=== PATIENT | female | born 1990 | race Caucasian/White ===

== ENCOUNTER 2018-03-06 08:24 | Emergency (ER) | payer SELFPAY ==
[~2018-03-06] VITALS: Ht 175.3 cm; Wt 108.9 kg
[2018-03-06 08:35] VITALS: BP 129/78
[2018-03-06] MEDS ORDERED: NAPR-514 PO (09:36)
--- NOTE | 2018-03-06 09:36 | PHYS DOC ---
Past Medical History Past Medical History: No Pertinent History Past Surgical History: Other Additional Past Surgical Histo: right elbow Alcohol Use: Occasionally Drug Use: None Adult General Chief Complaint Chief Complaint: SHOUDLER HPI HPI Patient is a 27 year old female who presents to the ER with complaints of L shoulder pain for the last week that is now shooting pain into the 4th and 5th digits of her left hand as of today. Pt denies any known injury, recent heavy lifting, or repetitive movements of her left shoulder. She currently rates the pain as a 6 out of 10 on the pain scale and states that the pain increases to an eight with movement. She has not taken anything for relief of her pain. She describes the pain as sharp aching. Review of Systems Review of Systems Constitutional: Denies fever or chills [] Eyes: Denies change in visual acuity, redness, or eye pain [] Respiratory: Denies cough or shortness of breath [] Cardiovascular: Denies chest pain Musculoskeletal: Denies back pain, reports left shoulder pain Integument: Denies rash or skin lesions [] Neurologic: Denies headache, focal weakness or sensory changes [] All other systems were reviewed and found to be within normal limits, except as documented in this note. Allergies Allergies Allergies Coded Allergies Type Severity Reaction Last Updated Verified latex Allergy Intermediate 03/06/18 Yes Physical Exam Physical Exam Constitutional: Well developed, well nourished, no acute distress, non-toxic appearance. [] HENT: Normocephalic, atraumatic, bilateral external ears normal, nose normal. [] Eyes: normal Skin: Warm, dry, no erythema, no rash. 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 [] Psychologic: Affect normal, judgement normal, mood normal. [] Current Patient Data Vital Signs Vital Signs Date Time Temp Pulse Resp B/P (MAP) Pulse Ox O2 Delivery O2 Flow Rate FiO2 03/06/18 08:35 98.5 75 18 129/78 (95) 100 Room Air 98.5 EKG EKG [] Radiology/Procedures Radiology/Procedures [] Course & Med Decision Making Course & Med Decision Making Pertinent Labs and Imaging studies reviewed. (See chart for details) Ulnar nerve entrapment, activity as tolerated, Rx for naproxen BID, follow up with PCP or Dr. Álvarez. Patient verbalized an understanding of home care, medications, follow-up, and return to ED instructions and was in agreement with the plan of care. [] Dragon Disclaimer Dragon Disclaimer This electronic medical record was generated, in whole or in part, using a voice recognition dictation system. Departure Departure Impression: Primary Impression: Ulnar nerve entrapment Disposition: HOME, SELF-CARE Condition: STABLE Referrals: NO PCP (PCP) LEONARD ÁLVAREZ MD Patient Instructions: Pinched Nerve Additional Instructions: Fill prescription and use as directed. Activity as tolerated. Follow up with your Primary care doctor or Dr. Álvarez if symptoms persist. Return to the ER if symptoms worsen. Scripts Naproxen (NAPROXEN) 500 Mg Tablet 1 TAB PO BID for 14 Days, #28 TAB 0 Refills Prov: YIFAN LR APRN 03/06/18 Problem Qualifiers Primary Impression: Ulnar nerve entrapment Laterality: left Qualified Codes: G56.22 - Lesion of ulnar nerve, left upper limb YIFAN LR [employer] Mar 06, 2018 09:36
== END 2018-03-06 09:50 | disposition home or self-care (01) ==
LOC: ER 08:24
DX: G56.22 Lesion of ulnar nerve, left upper limb (principal); M25.512 Pain in left shoulder; Z91.040 Latex allergy status
CPT/HCPCS: 99282

== ENCOUNTER 2018-06-29 04:32 | Emergency (ER) | payer OTHER ==
[~2018-06-29] VITALS: Ht 175.3 cm; Wt 108.9 kg
[~2018-06-29 04:32] MED LIST: NAPR-514 PO
[2018-06-29 04:34] VITALS: BP 131/83
--- NOTE | 2018-06-29 04:46 | PHYS DOC ---
Past Medical History Past Medical History: No Pertinent History Past Surgical History: Cholecystectomy, Other Additional Past Surgical Histo: right elbow Smoking: Cigarettes Alcohol Use: Occasionally Drug Use: None Adult General Chief Complaint Chief Complaint: SORE THROAT HPI HPI Patient is a 27 year old female who presents with sore throat. This started approximately 24 hours ago. Patient's partner has been diagnosed with strep pharyngitis within the past 48 hours. Patient reports feeling achy all over. No nausea or vomiting. No nasal congestion. Increased pain with swallowing. Subjective fevers. Nothing seems to make the discomfort better or worse other than swallowing.[] Review of Systems Review of Systems Constitutional: Denies chills [] Eyes: Denies change in visual acuity, redness, or eye pain [] HENT: Denies nasal congestion [] Respiratory: Denies cough or shortness of breath [] Cardiovascular: No chest pain or palpitations[] GI: Denies abdominal pain, nausea, vomiting, bloody stools or diarrhea [] : Denies dysuria or hematuria [] Musculoskeletal: Denies back pain or joint pain [] Integument: Denies rash or skin lesions [] Neurologic: Denies headache, focal weakness or sensory changes [] Endocrine: Denies polyuria or polydipsia [] All other systems were reviewed and found to be within normal limits, except as documented in this note. Current Medications Current Medications Current Medications Medications (Trade) Dose Ordered Sig/Kelvin Start Time Stop Time Status Last Admin Dose Admin Dexamethasone Sodium Phosphate (Decadron) 10 mg 1X ONCE 06/29/18 04:45 06/29/18 04:46 UNV Penicillin G Benzathine (Bicillin L-A) 1,200,000 unit 1X ONCE 06/29/18 04:45 06/29/18 04:46 UNV Allergies Allergies Allergies Coded Allergies Type Severity Reaction Last Updated Verified latex Allergy Intermediate 03/06/18 Yes Physical Exam Physical Exam Constitutional: Well developed, well nourished, no acute distress, non-toxic appearance. [] HENT: Normocephalic, atraumatic, bilateral external ears normal, oropharynx moist, enlarged tonsils, bilaterally symmetric. Uvula is midline. nose normal. [ ] Eyes: PERRLA, EOMI, conjunctiva normal, no discharge. [] Neck: Normal range of motion, no tenderness, supple, no stridor. Anterior chain lymphadenopathy is present [] Cardiovascular:Heart rate regular rhythm, no murmur [] Lungs & Thorax: Bilateral breath sounds clear to auscultation [] Abdomen: Bowel sounds normal, soft, no tenderness, no masses, no pulsatile masses. No hepato-or splenomegaly is present[] Skin: Warm, dry, no erythema, no rash. [] Back: No tenderness, no CVA tenderness. [] Extremities: No tenderness, no cyanosis, no clubbing, ROM intact, no edema. [] Neurologic: Alert and oriented X 3, normal motor function, normal sensory function, no focal deficits noted. [] Psychologic: Affect normal, judgement normal, mood normal. [] EKG EKG [] Radiology/Procedures Radiology/Procedures [] Course & Med Decision Making Course & Med Decision Making Pertinent Labs and Imaging studies reviewed. (See chart for details) Medical decision making: Patient with a sore throat and has been exposed to strep pharyngitis from her partner, will treat her for strep. No evidence of peritonsillar abscess, retropharyngeal abscess, meningitis, nor by mouth intolerance.[] Dragon Disclaimer Dragon Disclaimer This electronic medical record was generated, in whole or in part, using a voice recognition dictation system. Departure Departure Impression: Primary Impression: Pharyngitis Disposition: 01 HOME, SELF-CARE Condition: GOOD Referrals: NO PCP (PCP) Patient Instructions: Viral and Bacterial Pharyngitis Additional Instructions: Drink plenty of fluids. Follow-up with your regular doctor in 2 days. If you do not have regular doctor, list of local low-cost clinics will be provided for you. Return to the ER if worsening discomfort or, inability to swallow, or any other concerns. Problem Qualifiers Primary Impression: Pharyngitis Pharyngitis/tonsillitis etiology: unspecified etiology Qualified Codes: J02.9 - Acute pharyngitis, unspecified GHULAM STILL DO Jun 29, 2018 04:46
[2018-06-29] MEDS ORDERED: PENICILLIN G BENZATHINE LA 1,200,000 UNIT/2 ML DISP.SYRIN. IM ONE (05:00)
[2018-06-29] MEDS ORDERED: DEXAMETHASONE SOD PHOS 20 MG/5 ML VIAL. IM ONE (05:00)
== END 2018-06-29 05:10 | disposition home or self-care (01) ==
LOC: ER 04:32
DX: J02.9 Acute pharyngitis, unspecified (principal); R50.9 Fever, unspecified; R13.10 Dysphagia, unspecified; M79.10 Myalgia, unspecified site; F17.210 Nicotine dependence, cigarettes, uncomplicated; Z91.040 Latex allergy status
CPT/HCPCS: 96372; 99283; J0561; J1100

== ENCOUNTER 2018-10-24 20:01 | Emergency (ER) | payer OTHER, SELFPAY ==
[~2018-10-24] VITALS: Ht 175.3 cm; Wt 114.3 kg
[2018-10-24 20:42] VITALS: BP 141/67
[2018-10-24] MEDS ORDERED: ONDANSETRON ODT 4 MG TAB.RAPDIS. PO ONE (21:30)
[2018-10-24] MEDS ORDERED: MORPHINE SULFATE 10 MG/ML VIAL. IM ONE (21:30)
--- NOTE | 2018-10-24 22:31 | RAD ---
CT PELVIS WO CONTRAST Indication: PT FELL WHILE SKATING; PAIN TO PELVIS AND TAILBONE Exposure: One or more of the following individualized dose reduction techniques were utilized for this examination: 1. Automated exposure control 2. Adjustment of the mA and/or kV according to patient size 3. Use of iterative reconstruction technique. Technique: Standard imaging without intravenous contrast. Subchondral lesion at the anterosuperior left femoral head with a crescentic lucency and mild subjacent sclerosis. There is sclerosis of the femoral head and neck distal to this, involving the lateral aspect. Mild degenerative spurring at the right hip. Minimal subcortical cystic change at the anterior left femoral head and neck. There is mild cortical buckling of the sacrum with a cortical fracture at about the S6 level. This is just above the sacrococcygeal junction. No significant displacement. Sacroiliac joints are intact. Mild subchondral sclerosis at the iliac aspects of the joints, left greater than right. Mild degenerative spurring of both hips. No significant soft tissue abnormality. Visualized bowel loops are not distended. There is mild colonic diverticulosis. IMPRESSION: 1. Nondisplaced acute appearing fracture of the distal sacrum. 2. Subchondral lesion with fracture at the right femoral head. Likely etiologies are femoral head osteonecrosis or stress fracture. Outpatient MRI could further evaluate as indicated. Electronically signed by: Gunnar Castelan MD (10/24/2018 10:28 PM) [facility]
--- NOTE | 2018-10-24 22:36 | RAD ---
CT THORACIC SPINE WO CONTRAST Indication: PT FELL WHILE SKATING; PAIN TO UPPER BACK Exposure: One or more of the following individualized dose reduction techniques were utilized for this examination: 1. Automated exposure control 2. Adjustment of the mA and/or kV according to patient size 3. Use of iterative reconstruction technique. Technique: Standard imaging without intravenous contrast. Vertebral body height is intact. There is endplate irregularity at the lower thoracic levels, likely developmental as can be seen with Scheuermann's disease. There is also marginal spurring suggesting a degenerative component of disc disease. There is no evidence of an acute appearing fracture. No significant subluxation. No evidence of high-grade central osseous spinal stenosis. No evidence of paraspinal soft tissue swelling. Visualized lungs are clear. IMPRESSION: 1. No evidence of acute fracture or subluxation. 2. There is endplate irregularity and sclerosis with marginal spurring at multiple levels. Findings are likely degenerative and/or developmental in nature. Electronically signed by: Gunnar Castelan MD (10/24/2018 10:33 PM) [facility]
--- NOTE | 2018-10-24 22:43 | RAD ---
CT LUMBAR SPINE WO CONTRAST Indication: PT FELL WHILE SKATING; PAIN TO LOWER BACK Exposure: One or more of the following individualized dose reduction techniques were utilized for this examination: 1. Automated exposure control 2. Adjustment of the mA and/or kV according to patient size 3. Use of iterative reconstruction technique. Technique: Standard imaging without intravenous contrast. Vertebral body height is maintained. Mild endplate irregularity, similar to what was seen in the thoracic spine but less pronounced. Mild marginal spurring. Vertebral body height is maintained. No significant subluxation. Sacroiliac joints are intact. Small aortocaval lymph node identified with short axis measurement of 7 mm, likely reactive. Fracture of the distal sacrum again identified, described in the CT pelvis report. IMPRESSION: 1. Nondisplaced acute fracture of the distal sacrum again identified. 2. Mild degenerative changes of the lumbar spine. Electronically signed by: Gunnar Castelan MD (10/24/2018 10:40 PM) [facility]
[2018-10-24] MEDS ORDERED: HYDR-3164 PO (23:25)
[2018-10-24] MEDS ORDERED: ONDA4TAB12 PO (23:25)
--- NOTE | 2018-10-24 23:27 | PHYS DOC ---
Past Medical History Past Medical History: No Pertinent History (GUNNAR SEGAL APRN) Past Surgical History: Cholecystectomy, Other Additional Past Surgical Histo: right elbow (GUNNAR SEGAL APRN) Smoking: Cigarettes, 1 Pack Per Day Alcohol Use: None Drug Use: None (GUNNAR SEGAL APRN) Adult General Chief Complaint Chief Complaint: MECHANICAL FALL HPI HPI Patient is a 27-year-old female who fell at 6:30 while she was skating. She states she fell on her tailbone. She also has right hip pain. Pain is severity of 9 out of 10 she describes as jolting pain. She states she has not been able to urinate since the fall. Patient states that she has had ongoing right hip pain with a stress fracture in the hip. (GUNNAR SEGAL APRN) Review of Systems Review of Systems Constitutional: Denies fever or chills [] Eyes: Denies change in visual acuity, redness, or eye pain [] HENT: Denies nasal congestion or sore throat [] Respiratory: Denies cough or shortness of breath [] Cardiovascular: No additional information not addressed in HPI [] GI: Denies abdominal pain, nausea, vomiting, bloody stools or diarrhea [] : Denies dysuria or hematuria. Reports pressure like she needs to urinate but is unable to go to the restroom. Musculoskeletal: Report severe back pain and hip pain. Integument: Denies rash or skin lesions [] Neurologic: Denies headache, focal weakness or sensory changes [] Endocrine: Denies polyuria or polydipsia [] Complete systems were reviewed and found to be within normal limits, except as documented in this note. (GUNNAR SEGAL APRN) Current Medications Current Medications Current Medications Medications (Trade) Dose Ordered Sig/Kelvin Start Time Stop Time Status Last Admin Dose Admin Morphine Sulfate (Morphine Sulfate) 10 mg 1X ONCE 10/24/18 21:30 10/24/18 21:31 DC 10/24/18 21:49 10 MG Ondansetron HCl (Zofran Odt) 4 mg 1X ONCE 10/24/18 21:30 10/24/18 21:31 DC 10/24/18 21:49 4 MG (MELOANGELI E DO) Allergies Allergies Allergies Coded Allergies Type Severity Reaction Last Updated Verified latex Allergy Intermediate 9/12/18 Yes (ANGELI ALEJO DO) Physical Exam Physical Exam Constitutional: Appears in distress, is leaning over the chair in room and moaning. HENT: Normocephalic, atraumatic, oropharynx moist, no oral exudates, nose normal. [] Eyes: PERRLA, EOMI, conjunctiva normal, no discharge. [] Neck: Normal range of motion, no tenderness, supple, no stridor. [] Cardiovascular:Heart rate regular rhythm, no murmur [] Lungs & Thorax: Bilateral breath sounds clear to auscultation [] Abdomen: Bowel sounds normal, soft, no tenderness, no masses, no pulsatile masses. [] Skin: Warm, dry, no erythema, no rash. [] Back: Sacral Tenderness, Tenderness to the R Hip, Lumbar and Thoracic tenderness to palpation with no step offs. Extremities: No tenderness, no cyanosis, no clubbing, ROM intact, no edema. [] Neurologic: Alert and oriented X 3, normal motor function, normal sensory function, no focal deficits noted. [] Psychologic: Affect normal, judgement normal, mood normal. [] (GUNNAR SEGAL APRN) Current Patient Data Vital Signs Vital Signs Date Time Temp Pulse Resp B/P (MAP) Pulse Ox O2 Delivery O2 Flow Rate FiO2 10/24/18 21:49 20 10/24/18 20:42 97.9 141/67 (91) 97 Room Air 97.9 (MELOANGELI ) Lab Values Laboratory Tests Test 10/24/18 20:14 POC Urine HCG, Qualitative Hcg negative (Negative) (MELOANGELINOLA Miller DO) EKG EKG [] (GUNNAR SEGAL APRN) Radiology/Procedures Radiology/Procedures []PATIENT: ORLANDO TALAVERA EACCOUNT: [id number]#: [id number] : 1990 LOCATION: ER AGE: 27 SEX: F EXAM STATUS: REG ER ORD. PHYSICIAN: GUNNAR SEGAL APRN REASON: fall PROCEDURE: CT PELVIS WO CONTRAST CT PELVIS WO CONTRAST Indication: PT FELL WHILE SKATING; PAIN TO PELVIS AND TAILBONE Exposure: One or more of the following individualized dose reduction techniques were utilized for this examination: 1. Automated exposure control 2. Adjustment of the mA and/or kV according to patient size 3. Use of iterative reconstruction technique. Technique: Standard imaging without intravenous contrast. Subchondral lesion at the anterosuperior left femoral head with a crescentic lucency and mild subjacent sclerosis. There is sclerosis of the femoral head and neck distal to this, involving the lateral aspect. Mild degenerative spurring at the right hip. Minimal subcortical cystic change at the anterior left femoral head and neck. There is mild cortical buckling of the sacrum with a cortical fracture at about the S6 level. This is just above the sacrococcygeal junction. No significant displacement. Sacroiliac joints are intact. Mild subchondral sclerosis at the iliac aspects of the joints, left greater than right. Mild degenerative spurring of both hips. No significant soft tissue abnormality. Visualized bowel loops are not distended. There is mild colonic diverticulosis. IMPRESSION: 1. Nondisplaced acute appearing fracture of the distal sacrum. 2. Subchondral lesion with fracture at the right femoral head. Likely etiologies are femoral head osteonecrosis or stress fracture. Outpatient MRI could further evaluate as indicated. Electronically signed by: Gunnar Castelan MD (10/24/2018 10:28 PM) [facility] DICTATED and SIGNED BY: GUNNAR CASTELAN MD DATE: 10/24/182227 PATIENT: ORLANDO TALAVERA ACCOUNT: [id number] : 1990 LOCATION: ER AGE: 27 SEX: F EXAM STATUS: REG ER ORD. PHYSICIAN: GUNNAR SEGAL APRN REASON: fall PROCEDURE: CT LUMBAR SPINE WO CONTRAST CT LUMBAR SPINE WO CONTRAST Indication: PT FELL WHILE SKATING; PAIN TO LOWER BACK Exposure: One or more of the following individualized dose reduction techniques were utilized for this examination: 1. Automated exposure control 2. Adjustment of the mA and/or kV according to patient size 3. Use of iterative reconstruction technique. Technique: Standard imaging without intravenous contrast. Vertebral body height is maintained. Mild endplate irregularity, similar to what was seen in the thoracic spine but less pronounced. Mild marginal spurring. Vertebral body height is maintained. No significant subluxation. Sacroiliac joints are intact. Small aortocaval lymph node identified with short axis measurement of 7 mm, likely reactive. Fracture of the distal sacrum again identified, described in the CT pelvis report. IMPRESSION: 1. Nondisplaced acute fracture of the distal sacrum again identified. 2. Mild degenerative changes of the lumbar spine. Electronically signed by: Gunnar Castelan MD (10/24/2018 10:40 PM) [facility] PATIENT: ORLANDO TALAVERA ACCOUNT: [id number] : 1990 LOCATION: ER AGE: 27 SEX: F EXAM STATUS: REG ER ORD. PHYSICIAN: GUNNAR SEGAL APRN REASON: fall PROCEDURE: CT THORACIC SPINE WO CONTRAST CT THORACIC SPINE WO CONTRAST Indication: PT FELL WHILE SKATING; PAIN TO UPPER BACK Exposure: One or more of the following individualized dose reduction techniques were utilized for this examination: 1. Automated exposure control 2. Adjustment of the mA and/or kV according to patient size 3. Use of iterative reconstruction technique. Technique: Standard imaging without intravenous contrast. Vertebral body height is intact. There is endplate irregularity at the lower thoracic levels, likely developmental as can be seen with Scheuermann's disease. There is also marginal spurring suggesting a degenerative component of disc disease. There is no evidence of an acute appearing fracture. No significant subluxation. No evidence of high-grade central osseous spinal stenosis. No evidence of paraspinal soft tissue swelling. Visualized lungs are clear. IMPRESSION: 1. No evidence of acute fracture or subluxation. 2. There is endplate irregularity and sclerosis with marginal spurring at multiple levels. Findings are likely degenerative and/or developmental in nature. Electronically signed by: Gunnar Castelan MD (10/24/2018 10:33 PM) [facility] (GUNNAR SEGAL APRN) Course & Med Decision Making Course & Med Decision Making Pertinent Labs and Imaging studies reviewed. (See chart for details) []Discussed signs and symptoms. Discussed getting CT scans of pelvis, lumbar, and thoracic spine due to amount of pain after injury that is ongoing. Will also give morphine IM and Zofran. Patient is agreeable to plan of care. CT scans showed S6 fracture and an femoral head fracture that is questionable per patient history on whether or not that is from this accident. Patient has a stress fracture that she is already being seen by Ortho for. Offered admission for pain control and to have Ortho see her in the morning. Patient declined admission. Will call orthopedics in the morning. (GUNNAR SEGAL APRN) Dragon Disclaimer Dragon Disclaimer This electronic medical record was generated, in whole or in part, using a voice recognition dictation system. (GUNNAR SEGAL APRN) Dragon Disclaimer The mid-level provider has independently evaluated and treated this patient. I was available for consultation throughout the patient care by the mid-level provider. I agree with the care provided by the mid-level provider (ANGELI ALEJO DO) Departure Departure Impression: Primary Impression: Sacral fracture, closed Additional Impression: Fracture of femoral head Disposition: HOME, SELF-CARE Condition: STABLE Referrals: GUILLE DRAPER MD (PCP) LEONARD DONOHUE MD Additional Instructions: Please follow up with Ortho in the morning. Take medication as directed for pain control. Scripts Hydrocodone/Apap 5-325 (NORCO 5-325 TABLET) 1 Each Tablet 1-2 TAB PO Q4-6HRS for 7 Days, #10 TAB Prov: GUNNAR SEGAL APRN 10/24/18 Ondansetron (ONDANSETRON ODT) 4 Mg Tab.rapdis 1 TAB PO PRN Q6-8HRS PRN for NAUSEA, #16 TAB Prov: GUNNAR SEGAL APRN 10/24/18 Problem Qualifiers Primary Impression: Sacral fracture, closed Encounter type: initial encounter Fracture morphology: unspecified fracture morphology Qualified Codes: S32.10XA - Unspecified fracture of sacrum, initial encounter for closed fracture Additional Impression: Fracture of femoral head Encounter type: initial encounter Fracture type: closed Laterality: right Qualified Codes: S72.051A - Unspecified fracture of head of right femur, initial encounter for closed fracture GUNNAR SEGAL APRN October 24, 2018 23:27 ANGELI ALEJO DO October 25, 2018 06:08
== END 2018-10-25 00:04 | disposition home or self-care (01) ==
LOC: ER 20:01
DX: S32.19XA Other fracture of sacrum, initial encounter for closed fracture (principal); S72.091A Other fracture of head and neck of right femur, initial encounter for closed fracture; M54.6 Pain in thoracic spine; F17.210 Nicotine dependence, cigarettes, uncomplicated; Z90.49 Acquired absence of other specified parts of digestive tract; Z91.040 Latex allergy status; W18.39XA Other fall on same level, initial encounter; Y93.21 Activity, ice skating; Y92.89 Other specified places as the place of occurrence of the external cause; Y99.8 Other external cause status
CPT/HCPCS: 72128; 72131; 72192; 81025; 96372; 99284; J2270; Q0162

== ENCOUNTER → 2019-01-10 | Outpatient (CLI) | payer OTHER ==
[~2019-01-10] MED LIST changes: +HYDR-3164 PO; +ONDA4TAB12 PO
--- NOTE | 2019-01-10 13:42 | KCIC ---
LUMBAR SPINE WO CONTRAST History: Right hip pain. Leg pain. Technique: Multiplanar, multi sequential MR imaging was performed of the lumbar spine. Comparison: CT lumbar spine October 24, 2018. Findings: Normal vertebral body height and alignment. No fracture. Degenerative endplate edema at L5-S1. Conus terminates at the normal location. No evidence of nerve root clumping. T12-L1: Small posterior disc protrusion. No canal or neuroforaminal narrowing. L1-L2: No canal or neuroforaminal narrowing. L2-L3: No canal or neuroforaminal narrowing. L3-L4: No canal or neuroforaminal narrowing. Mild facet arthropathy with facet joint effusions. L4-L5: Disc height loss. Broad-based posterior disc bulge with central annular fissure. Mild facet arthropathy. No canal narrowing. No neuroforaminal narrowing. L5-S1: Disc height loss. Small central disc protrusion. Mild facet arthropathy. No canal narrowing. No neural foraminal narrowing. Impression: 1. Mild lower lumbar spondylosis most prominent L4-L5 and L5-S1. No significant canal or neuroforaminal narrowing. 2. Degenerative endplate edema at L5-S1. Electronically signed by: Robert Bishop DO (01/10/2019 1:39 PM) [facility]
== END | disposition home or self-care (01) ==
LOC: KCIC MRI 12:31
PROVIDERS: ATTEND Orthopaedic Surgery
DX: M47.817 Spondylosis without myelopathy or radiculopathy, lumbosacral region (principal); M51.25 Other intervertebral disc displacement, thoracolumbar region; M51.27 Other intervertebral disc displacement, lumbosacral region; M12.88 Other specific arthropathies, not elsewhere classified, other specified site; G95.19 Other vascular myelopathies
CPT/HCPCS: 72148

== ENCOUNTER 2019-02-14 11:32 | Day surgery (SDC) | payer OTHER ==
[~2019-02-14 11:32] MED LIST changes: +HYDROmorphone 2 MG/ML VIAL IV PRN; +IV RINGERS,LACTATED 1000ML 1,000 ML IV SCH; +MORPHINE SULFATE 2 MG/ML VIAL. IV PRN; +ONDANSETRON PF 4 MG/2 ML VIAL. IV PRN; +PROCHLORPERAZINE 10 MG/2 ML VIAL. IV PRN; +fentaNYL PF VIAL 100 MCG/2 ML VIAL IV PRN
[2019-02-14] MEDS ORDERED: MIDAZOLAM HCL/PF 2 MG/2 ML VIAL. ONE (12:43)
[2019-02-14] MEDS ORDERED: fentaNYL PF VIAL 100 MCG/2 ML VIAL ONE ×3 (12:43→14:28)
[2019-02-14] MEDS ORDERED: SEVOFLURANE 16 TO 30 MINUTES. IH ONE (12:43)
[2019-02-14] MEDS ORDERED: DEXAMETHASONE SOD PHOS 4 MG/ML VIAL ONE (12:44)
[2019-02-14] MEDS ORDERED: PROPOFOL 20 ML IV ONE (12:44)
[2019-02-14] MEDS ORDERED: LIDOCAINE 2% PF 5 ML VIAL. ONE (12:44)
[2019-02-14] MEDS ORDERED: KETOROLAC 30 MG/ML INJ FOR OR. INJ ONE (12:45)
[2019-02-14] MEDS ORDERED: ONDANSETRON PF 4 MG/2 ML VIAL. ONE (12:45)
[2019-02-14] MEDS: fentaNYL PF VIAL 100 MCG/2 ML VIAL IV PRN ×2 (14:39→15:17)
--- NOTE | 2019-02-14 14:58 | PDOC ---
BRIEF OPERATIVE NOTE Date: Feb 14, 2019 Pre-Op Diagnosis AUB Post-Op Diagnosis Same Procedure Performed Dx hysteroscopy with BIRGIT Surgeon Nasim Anesthesia Type: General Blood Loss 20cc Specimens Obtained None Complications None CARLOS GONZALEZ MD Feb 14, 2019 14:58
[2019-02-14] MEDS ORDERED: NAPR-514 PO (15:04)
[2019-02-14] MEDS ORDERED: HYDR-3164 PO (15:04)
--- NOTE | 2019-02-14 15:21 | OP ---
DATE OF SURGERY: 02/14/2019 PREOPERATIVE DIAGNOSIS: Abnormal uterine bleeding. POSTOPERATIVE DIAGNOSES: Abnormal uterine bleeding. PROCEDURE: Diagnostic hysteroscopy with endometrial ablation with NovaSure. SURGEON: Aly Rouse MD FIELD TRAINER: None. ANESTHESIA: General. ESTIMATED BLOOD LOSS: 20 mL. FLUIDS: Crystalloid. SPECIMENS: None. COMPLICATIONS: None. DESCRIPTION OF PROCEDURE: After risks, benefits, indications, alternatives, and expectations discussed in detail with the patient, the patient was brought to OR theater, placed in dorsal lithotomy position in Alex stirrups. After adequate general anesthesia, the patient prepped and draped in usual sterile manner. Posterior weighted speculum was placed in the vaginal vault. Cervix was grasped with single tooth tenaculum. The uterus was sounded with uterine sound at approximately 9 cm. Cervix was dilated up to receive the hysteroscope and the NovaSure measuring device was placed without any difficulty. The uterine cavity length was 6 cm. Cervical length was 3 cm. Hysteroscope was placed. There was considerable tissue and blood in the uterine cavity, which obscured the field. The hysteroscope was then placed after placing a uterine cavity length at 6 cm. The NovaSure device was opened. The cavity width was 3 cm. Cavity assessment was performed. The procedure was begun and lasted approximately 69 seconds with good fulguration occurred. The device was removed. Cavity was once again inspected with hysteroscope with good fulguration was noted in all areas of the cavity and procedure was terminated. Single tooth tenaculum was removed. Puncture sites were hemostatic. Vaginal vault was wiped free of any blood or debris. Posterior weighted speculum also removed. The procedure was terminated. Sponge, needle and instrument counts were correct x 2 per nursing staff. ALY ROUSE MD DR: MARTINE/roslyn JOB#: [id number] / [id number]
[2019-02-14] MEDS ORDERED: HYDROcodone/APAP 5/325MG 1 TAB TABLET PO ONE (15:30)
[2019-02-14 16:00] VITALS: BP 124/83
== END 2019-02-14 16:12 | disposition home or self-care (01) ==
LOC: SURG 11:32
PROVIDERS: ATTEND Specialist
DX: N93.9 Abnormal uterine and vaginal bleeding, unspecified (principal); Z90.49 Acquired absence of other specified parts of digestive tract; Z91.040 Latex allergy status; Z98.890 Other specified postprocedural states; Z98.51 Tubal ligation status
CPT/HCPCS: 58563; 81025; A7015; J1100; J1885; J2001; J2250; J2405; J2704; J3010; J7030

== ENCOUNTER → 2019-03-14 | Outpatient (CLI) | payer OTHER ==
[2019-02-14 16:00] VITALS: BP 124/83
[~2019-03-14] MED LIST changes: -HYDROmorphone 2 MG/ML VIAL IV PRN; -IV RINGERS,LACTATED 1000ML 1,000 ML IV SCH; -MORPHINE SULFATE 2 MG/ML VIAL. IV PRN; -ONDANSETRON PF 4 MG/2 ML VIAL. IV PRN; -PROCHLORPERAZINE 10 MG/2 ML VIAL. IV PRN; +[UNRECOGNIZED DRUG - REMARK]; -fentaNYL PF VIAL 100 MCG/2 ML VIAL IV PRN
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
== END | disposition home or self-care (01) ==
LOC: PNCL 09:42
PROVIDERS: ATTEND Anesthesiology
DX: M25.551 Pain in right hip (principal); M25.511 Pain in right shoulder; M87.88 Other osteonecrosis, other site; F17.210 Nicotine dependence, cigarettes, uncomplicated; F32.9 Major depressive disorder, single episode, unspecified; M19.90 Unspecified osteoarthritis, unspecified site; W10.8XXA Fall (on) (from) other stairs and steps, initial encounter; Y93.89 Activity, other specified; Y92.89 Other specified places as the place of occurrence of the external cause; Y99.8 Other external cause status
CPT/HCPCS: G0463

== ENCOUNTER → 2019-03-31 | Outpatient (CLI) | payer OTHER ==
[~2019-03-31] MED LIST changes: +BUPIVACAINE MPF 0.25% 10 ML VIAL. ONE; +IOHEXOL 180 MG/ML 10 ML VIAL. ONE; +methylPREDNISolone ACETATE 80 MG/ML VIAL. ONE
--- NOTE | 2019-03-31 11:32 | PAIN ---
DATE OF SERVICE: 03/31/2019 PROGRESS NOTE FOR PAIN CLINIC DIAGNOSES: Right hip joint pain with avascular necrosis of right hip joint. HISTORY OF PRESENT ILLNESS: The patient is a 28-year-old female who returns for followup status post preauthorization for a right intraarticular hip joint injection. The patient has obtained that and would like to proceed today, still significant pain in the right hip with walking, standing, and weightbearing, especially putting all of her weight on her right leg such as climbing a stair, stepping off a curb, and reports as a 9 on a scale of 10 at its worse over the past week, 7 on its average, and 5 at its least and is a 5 today. The patient reports no new motor or sensory deficits, no new bowel or bladder incontinence or other complaints. There is still significant pain described as stabbing, aching, sharp, and constant in the right hip itself. PHYSICAL EXAMINATION: VITAL SIGNS: The patient's blood pressure is 121/83, pulse 83, respirations 16, temperature 98.1 degrees Fahrenheit, height is 5 feet 9 inches, weight is 244 pounds. GENERAL: The patient is awake, alert, oriented, appropriate, very pleasant demeanor. HEENT: Shows normocephalic, atraumatic. Extraocular movements are intact and symmetrical. Oral cavity: Mucous membranes moist and pink. NECK: Shows anterior throat supple without palpable lymphadenopathy noted. Swallow reflex symmetrical. CHEST: Shows normal on inspection. Breath sounds clear bilaterally. HEART: Shows S1, S2 clear. ABDOMEN: Soft, obese, nontender, nondistended. BACK: Shows spine grossly in the midline. Lumbar paraspinous muscle shows symmetrical on inspection, on palpation shows some very mild tenderness in the low lumbar distribution, but only diffusely. EXTREMITIES: The patient's lower extremities show deep tendon reflexes 2+ in the patellar, 1+ tendo-calcaneus tendons. Motor exam is approximately 4 on a scale of 5 with right dorsiflexion, extension, quadriceps and hamstring flexion and 5/5 on the left. The patient still has a positive Samuel's maneuver with external rotation of the right hip and with the knee flexed to the right side only; left side is negative. Options were discussed with the patient. The patient's old chart was reviewed as her current medication regimen updated. Current review of systems updated today as well. We will proceed with a right-sided intraarticular hip joint injection with fluoroscopic guidance. Risks were again discussed including, but not limited to bleeding, infection, possibility of intravascular injection sequelae, spread of local anesthetic and numbness, side effects of steroid medication, exposure to fluoroscopy, and poor results regarding pain control. The patient understands and wished to proceed. The patient will return to clinic in approximately 2 weeks for followup. She was counseled on return appointment, activity level, and side effects to be aware of. DIAGNOSES: Right hip joint pain with avascular necrosis of right hip joint. PROCEDURE: Right intra-articular hip joint injections using C-arm fluoroscopic guidance under sterile prep and drape using local anesthetic. MEDICATION INJECTED: A total of 3 mL of 0.25% bupivacaine, 80 mg Depo-Medrol and 2 mL of contrast. CONDITION AT DISCHARGE: Stable. The patient tolerated procedure well, had no complications. SHA MARCUS MD DR: DIO/roslyn JOB#: [id number] / [id number]
== END ==
LOC: PNCL 09:49
PROVIDERS: ATTEND Anesthesiology
DX: M16.11 Unilateral primary osteoarthritis, right hip (principal)
CPT/HCPCS: 20610; 77002; J1040; J3490; Q9965

== ENCOUNTER → 2019-05-16 | Outpatient (CLI) | payer OTHER ==
--- NOTE | 2019-05-17 03:55 | PAIN ---
DATE OF SERVICE: 05/16/2019 PROGRESS NOTE FOR PAIN CLINIC DIAGNOSIS: Right hip joint pain with avascular necrosis, right hip joint. HISTORY OF PRESENT ILLNESS: The patient is a 28-year-old female who returns for followup status post right hip joint injection on 03/31/2019. The patient reports about 70% improvement for the first 3 weeks or so. The patient reports the pain is beginning to return now, worse since she started working again, she is on her feet much more. Walking, standing, changing positions, all exacerbate the pain, better with sitting or lying down. Generally, it does not awaken her from sleep, but over the past week, it has been every 5-6 hours. The patient reports the pain in the right hip, right groin radiating, worse with standing, putting all of her weight on her right leg. She described it as cramping, aching, sharp, shooting, severe at times, on and off in intensity and again better with sitting or lying down. The patient reports it is an 8 on a scale of 10 at its worst over the past week, 6 on average, 4 at its least and is a 6 today. The patient reports no new motor or sensory deficits, no new changes. PHYSICAL EXAMINATION: VITAL SIGNS: The patient's blood pressure 120/78, pulse 72, respirations 18, temperature 98.2 degrees Fahrenheit, height is 5 feet 9 inches, weight is 237 pounds. GENERAL: The patient is awake, alert, oriented, appropriate, very pleasant demeanor. HEENT: Shows normocephalic, atraumatic. Extraocular movements are intact and symmetrical. Oral cavity, mucous membranes moist and pink. Dentition is intact. NECK: Shows anterior throat supple without palpable lymphadenopathy noted. Swallow reflex is symmetrical. CHEST: Shows normal on inspection. Breath sounds clear to auscultation bilaterally. HEART: Shows S1, S2 clear. No murmurs auscultated. ABDOMEN: Soft, nontender, nondistended. No palpable organomegaly is noted. No rebound or guarding demonstrated. BACK: Shows spine grossly in the midline. Normal appearing thoracic kyphosis and lumbar lordotic curvature. Lumbar paraspinous muscle shows symmetrical on inspection ____ tenderness on palpation. EXTREMITIES: The patient's lower extremities show deep tendon reflexes 2+ in the patellar, 1+ tendo-calcaneus tendons. Motor exam is approximately 4 on a scale of 5 on the right and 5/5 on the left. The patient does still have a positive Samuel's maneuver with external rotation of the right hip and posterior displacement, left side is negative. Peripheral pulses are 1+ posterior tibial. No peripheral edema is noted bilaterally. Options were discussed with the patient. The patient's old chart was reviewed as her current medication regimen updated. Current review of systems updated today as well and we will proceed with a second intra-articular hip joint injection on the right side today with fluoroscopic guidance. Risks were again discussed including, but not limited to bleeding, infection, possibility of intravascular injection sequelae, spread of local anesthetic and numbness, side effects of steroid medication and poor results regarding pain control. The patient understands and wished to proceed. The patient will return to clinic in approximately 2 weeks for followup. She was counseled on return appointment, activity level and side effects to be aware of. DIAGNOSES: Right hip joint pain with avascular necrosis, right hip joint. PROCEDURE: Right intra-articular hip joint injection using C-arm fluoroscopic guidance under sterile prep and drape using local anesthetic. MEDICATION INJECTED: A total of 3 mL of 0.25% bupivacaine, 80 mg Depo-Medrol and 2 mL of contrast. CONDITION AT DISCHARGE: Stable. The patient tolerated the procedure well, had no complications. SHA MARCUS MD DR: DIO/roslyn JOB#: [id number] / [id number]
== END ==
LOC: PNCL 10:44
PROVIDERS: ATTEND Anesthesiology
DX: M87.851 Other osteonecrosis, right femur (principal)
CPT/HCPCS: 20610; 77002; J1040; J3490; Q9965

== ENCOUNTER → 2019-09-12 | Outpatient (CLI) | payer OTHER ==
--- NOTE | 2019-09-12 11:25 | PAIN ---
DATE OF SERVICE: 09/12/2019 PROGRESS NOTE FOR PAIN CLINIC DIAGNOSES: Right hip joint pain with avascular necrosis. HISTORY OF PRESENT ILLNESS: The patient is a 28-year-old female who returns for followup status post right hip joint injection, last seen 05/16/2019. The patient reports she did very well with overall about a 50% improvement, but for the first 2 weeks with near 100% improvement and the pain began to return in the right hip with walking, standing, changing positions, especially putting all of her weight on her right leg. The patient reports now the pain is in the posterior gluteus, lateral thigh and into the groin with walking, standing, especially putting all her weight on her right leg, especially stepping on a stair or curb climbing stairs, standing on her right leg. The patient reports it is also painful with sitting for prolonged periods, greater than about 30 minutes on the right side and has had difficulty sleeping as well, wakes her from sleep about every 5-6 hours. The patient reports the pain is a 10 on a scale of 10 at its worst over the past week, 9 on average, 6 at its least and is a 9 today. The patient reports it is aching and sharp, tingling, stabbing, becoming more constant, more severe and sometimes unbearable with activity. The patient reports no new motor or sensory deficits or other complaints. PHYSICAL EXAMINATION: VITAL SIGNS: The patient's blood pressure 136/84, pulse 84, respirations 16, temperature 98.7 degrees Fahrenheit, height is 5 feet 9 inches, weight is 224 pounds. GENERAL: The patient is awake, alert, oriented, appropriate, very pleasant demeanor. HEENT: Head shows normocephalic, atraumatic. Extraocular movements are intact and symmetrical. Oral cavity: Mucous membranes moist and pink. Dentition is intact. NECK: Shows anterior throat supple without palpable lymphadenopathy noted. Swallow reflex symmetrical. CHEST: Shows normal on inspection. Breath sounds are clear bilaterally. HEART: Shows S1, S2 clear. No murmurs auscultated. ABDOMEN: Soft, nontender, nondistended. BACK: Shows spine grossly in the midline, normal-appearing cervical lordotic curvature, thoracic kyphotic curvature and lumbar lordotic curvature. Lumbar paraspinous muscle shows symmetrical on inspection, with palpation shows some very mild tenderness in the lumbar distribution symmetrical without atrophy, hypertrophy, no trigger points. The patient shows full rotational motion of lumbar spine, both laterally as well as extension and flexion without difficulty. EXTREMITIES: Lower extremities show deep tendon reflexes 2+ in the patellar, 1+ tendo-calcaneus tendons. Motor exam is approximately 4 on a scale of 5 with right dorsiflexion, extension, quadriceps and hamstring flexion and has a positive Samuel's maneuver on the right with external rotation and flexion of the right hip. Left side is negative. Peripheral pulses are 1+ posterior tibia. No peripheral edema bilaterally. Options were discussed with the patient. The patient's old chart was reviewed as her current medication regimen updated. Current review of systems updated today as well. We will proceed with an intra-articular hip joint injection on the right with fluoroscopic guidance. Risks were again discussed including, but not limited to bleeding, infection, possibility of intravascular injection sequelae, spread of local anesthetic and numbness, side effects of steroid medication and poor results regarding pain control. The patient understands and wished to proceed. The patient will return to clinic in approximately 2 weeks for followup. She was counseled on return appointment, activity level and side effects to be aware of. DIAGNOSIS: Right hip joint pain with primary avascular necrosis, right hip. PROCEDURE: Right intraarticular hip joint injection using C-arm fluoroscopic guidance under sterile prep and drape using local anesthetic. MEDICATION INJECTED: A total of 3 mL of 0.25% bupivacaine, 2 mL of contrast and 80 mg of Depo-Medrol. CONDITION AT DISCHARGE: Stable. The patient tolerated the procedure well, had no complications. SHA MARCUS MD DR: DIO/roslyn JOB#: [id number] / [id number]
== END ==
LOC: PNCL 09:58
PROVIDERS: ATTEND Anesthesiology
DX: M25.551 Pain in right hip (principal); I96 Gangrene, not elsewhere classified
CPT/HCPCS: 20610; 77002; J1040; J3490; Q9965

== ENCOUNTER → 2019-11-20 | Outpatient (CLI) | payer OTHER ==
--- NOTE | 2019-11-20 11:14 | PAIN ---
DATE OF SERVICE: 11/20/2019 PROGRESS NOTE FOR PAIN CLINIC DIAGNOSES: Right hip joint pain with primary osteoarthritis, right hip joint. HISTORY OF PRESENT ILLNESS: The patient is a 28-year-old female who returns for followup status post right hip joint injection with avascular necrosis of the hip most recently on 09/12/2019. The patient reports she did very well, had almost no pain for about 2 weeks, the pain was about 75-80% improved after that, though over the past 1-2 weeks, the pain has been starting to return in the right hip as she fell just a few weeks ago when she was walking at home and twisted her ankle and landed on her right side causing the hip pain to increase. The patient reports it is now a 9 on a scale of 10 at its worst over the past week, 8 on average and 6 at its least and is an 8 today. The patient reports it is cramping, stabbing, aching, sharp, shooting, radiating into the anterior thigh and groin, becoming more constant and severe and unbearable with weightbearing. The patient reports it is awakening her from sleep about once every 6 hours. The patient reports she still has planned for a total hip replacement, but her orthopedic surgeon is requiring her to stop smoking first as she has targeted it for December of this year. The patient reports no new motor or sensory deficits or other complaints. PHYSICAL EXAMINATION: VITAL SIGNS: The patient's blood pressure 125/84, pulse 93, respirations 16, temperature is 98.5 degrees Fahrenheit, height is 5 feet 9 inches, weight is 230 pounds. GENERAL: The patient is awake, alert, oriented, appropriate, very pleasant demeanor. HEENT: Shows normocephalic, atraumatic. Extraocular movements are intact and symmetrical. Oral cavity shows mucous membranes moist and pink. Dentition is intact. NECK: Shows anterior throat supple without palpable lymphadenopathy noted. Swallow reflex symmetrical. CHEST: Shows normal on inspection. Breath sounds are clear bilaterally. HEART: Shows S1, S2 clear. No murmurs auscultated. ABDOMEN: Soft, obese, nontender, nondistended. No palpable organomegaly is noted. No rebound or guarding demonstrated. BACK: The patient's back shows spine grossly in midline. Normal cervical lordotic curvature, thoracic kyphotic curvature and lumbar lordotic curvature. EXTREMITIES: The patient's lower extremities show deep tendon reflexes at 2+ patellar, 1+ tendo-calcaneus tendons. The patient does have a soft [place] wrap on the left ankle. Motor exam is strong with 5/5 quadriceps and hamstring flexion on the left and 4/5 on the right. The patient does have a positive Samuel's maneuver with external rotation and posterior displacement of the right hip with significant pain radiating into the groin as well as the anterior thigh. Left side is negative. Peripheral pulses are 1+. No peripheral edema bilaterally. Options were discussed with the patient. The patient's old chart was reviewed as her current medication regimen updated. Current review of systems updated today as well and we will proceed with a right intraarticular hip joint injection today as she has done very well with these in the past. Risks were again discussed including, but not limited to bleeding, infection, possibility of intravascular injection sequelae, spread of local anesthetic and numbness, side effects of steroid medication, exposure to fluoroscopy as well as poor results regarding pain control. The patient understands and wished to proceed. The patient will return to the clinic in approximately 2 months for followup or sooner if necessary. The patient was counseled as to activity level as well as side effects to be aware of. DIAGNOSES: Right hip joint pain with primary osteoarthritis and avascular necrosis, right hip joint. PROCEDURE: Right intraarticular hip joint injection using C-arm fluoroscopic guidance under sterile prep and drape using local anesthetic. MEDICATION INJECTED: Total of 80 mg Depo-Medrol plus 3 mL of 0.25% bupivacaine, 2 mL of contrast. CONDITION AT DISCHARGE: Stable. The patient tolerated the procedure well, had no complications. SHA MARCUS MD DR: DIO/roslyn JOB#: [id number] / [id number]
== END ==
LOC: PNCL 09:56
PROVIDERS: ATTEND Anesthesiology
DX: M16.11 Unilateral primary osteoarthritis, right hip (principal)
CPT/HCPCS: 20610; 77002; J1040; J3490; Q9965